=== PATIENT | female | born 1995 | race Caucasian/White ===

== ENCOUNTER 2018-08-27 21:32 | Emergency (ER) | payer BC ==
[~2018-08-27] VITALS: Ht 165.1 cm; Wt 81.4 kg
[2018-08-27 21:36] VITALS: BP 117/68; PULSE 73; RESP 20; Ht 165.1 cm; Wt 81.4 kg
[2018-08-28] MEDS ORDERED: IBUP-1542 PO (00:03)
[2018-08-28] MEDS ORDERED: D-ME473S2 PO (00:03)
[2018-08-28] MEDS ORDERED: AZIT250T PO (00:03)
--- NOTE | 2018-08-28 00:05 | ERD ---
ER Documentation Chief Complaint Chief Complaint on and off cough/fever x 1 week HPI 22-year-old female presents with productive cough for last week with chills and fever and body aches. She denies shortness of breath, chest pain, vomiting, abdominal pain. She denies . She denies asthma, previous pulmonary conditions. ROS All systems reviewed and are negative except as per history of present illness. Medications Home Meds Active Scripts Ibuprofen* (Motrin*) 600 Mg Tab, 600 MG PO Q6, #15 TAB Prov:GURU SCHWARZ MD 08/28/18 Dextromethorphan Hb-Promethazine Hcl* (Promethazine DM* Syrup) 473 Ml Syrup, 5 ML PO Q6 PRN for COUGH for 5 Days, ML Prov:GURU SCHWARZ MD 08/28/18 Azithromycin* (Zithromax*) 250 Mg Tablet, 250 MG PO .ZPACK DIRECTED, #6 TAB TAKE 500 MG (2 TABS) THE FIRST DAY THEN 250 MG (1 TAB) DAYS 2-5 Prov:GURU SCHWARZ MD 08/28/18 Allergies Allergies: Coded Allergies: No Known Drug Allergies (Verified Allergy, Unknown, 08/27/18) PMhx/Soc Medical and Surgical Hx: pt denies Medical Hx, pt denies Surgical Hx Hx Alcohol Use: No Hx Substance Use: No Hx Tobacco Use: No Smoking Status: Never smoker FmHx Family History: No diabetes, No coronary disease, No other Physical Exam Vitals Vital Signs Date Temp Pulse Resp B/P (MAP) Pulse Ox O2 O2 Flow FiO2 Time Delivery Rate 08/27/18 97.5 73 20 117/68 99 21:36 (84) Physical Exam Const: No acute distress Head: Atraumatic Eyes: Normal Conjunctiva ENT: Normal External Ears, Nose and Mouth. TMs and oropharynx normal. Neck: Full range of motion. No meningismus. Resp: Clear to auscultation bilaterally. Rhonchi without rales, wheezing or retractions. Cardio: Regular rate and rhythm, no murmurs Abd: Soft, non tender, non distended. Normal bowel sounds Skin: No petechiae or rashes Back: No midline or flank tenderness Ext: No cyanosis, or edema Neur: Awake and alert Psych: Normal Mood and Affect Procedures/MDM Patient presents with productive cough last week with body aches and fever. She has no clinical signs of pneumonia, hypoxemia, respiratory distress. We will treat empirically with Zithromax, promethazine, ibuprofen given duration of symptoms and patient request. Although she may have lingering viral URI. The patient was stable with no new complaints during the ER course. Clinically, there is no current evidence to suggest meningitis, sepsis, acute abdomen, pneumonia, stroke, acute coronary syndrome, pulmonary embolism, aortic dissection or any other emergent condition appearing to require further evaluation or hospitalization. Patient counseled regarding my diagnostic impression and care plan. Prior to discharge all questions answered. Pt agrees with treatment plan and understands strict return precautions. Pt is instructed to follow up with primary care provider within 24-48 hours. Precautionary instructions provided including instructions to return to the ER if not improving or for any worsening or changing symptoms or concerns. Disclaimer: Inadvertent spelling and grammatical errors are likely due to EHR/dictation software use and do not reflect on the overall quality of patient care. Also, please note that the electronic time recorded on this note does not necessarily reflect the actual time of the patient encounter. Departure Diagnosis: Primary Impression: Cough Condition: Stable Patient Instructions: Bronchitis, Antiobiotic Treatment (Adult) [facility] Usted se de guzman hecho un examen mdico de control que le indica que no est en cecilio condicin que requiera tratamiento urgente en el Departamento de Emergencia. Un estudio ms profundo y el tratamiento de childs condicin pueden esperar sin ningn riesgo hasta que usted sea atendida/o en el consultorio de childs mdico o cecilio clnica. Es responsabilidad suya arreglar cecilio blas para el seguimiento del anson. MANEJO DE CONDICIONES NO URGENTES EN EL FUTURO 1) Si usted tiene un mdico de atencin primaria: Usted debera llamar a childs mdico de atencin primaria antes de venir al departamento de emergencia. Despus de las horas de consultorio, childs doctor o childs asociado/a est disponible por telfono. El mdico o enfermero de madina en el servicio telefnico puede asesorarle por marychuy medio para atender el problema, o anson contrario se puede programar cecilio blas. 2) Si usted no tiene un mdico de atencin primaria: Llame al mdico o clnica de referencia que aparece abajo sanjana las horas de consultorio para hacer cecilio blas para que le vean. CLINICAS: [place] [id number] [phone] [facility] [phone] [address] [facility] [phone] [address] [place] [phone] [id number] [place] [id number] [phone] [facility]. [phone] [address] Additional Instructions: Cheque otro vez con childs doctor primario en el proximo [place] or regresa para mas o nueva simptomas. GURU SCHWARZ MD Aug 28, 2018 00:05
== END 2018-08-28 00:27 | disposition home or self-care (01) ==
LOC: FTE 21:32
DX: R05 Cough (principal)
CPT/HCPCS: 99283